=== PATIENT | female | born 1985 | race Caucasian/White ===

== ENCOUNTER 2017-08-23 00:34 | Inpatient (IN) | payer SELFPAY ==
[2017-08-23 02:18] LABS: HEMATOCRIT 40.4 % (36.0-47.0); HEMOGLOBIN 14.1 g/dl (12.0-15.5); MEAN CORPUSCULAR HEMOGLOBIN 32.3 pg (27.0-33.0); MEAN CORPUSCULAR HGB CONC 34.9 g/dl (32.0-36.5); MEAN CORPUSCULAR VOLUME 92.7 fl (80.0-96.0); PLATELET COUNT, AUTOMATED 310 10^3/uL (150-450); RED BLOOD COUNT 4.36 10^6/uL (4.00-5.40); RED CELL DISTRIBUTION WIDTH 12.6 % (11.5-14.5); WHITE BLOOD COUNT 6.6 10^3/uL (4.0-10.0)
[2017-08-23 02:31] LABS: CONTROL LINE HCG INT CTR LINE PRESENT; HCG, SERUM QUALITATIVE NEGATIVE (NEGATIVE)
[2017-08-23 02:38] LABS: AMPHETAMINES LEVEL URINE NEGATIVE (NEGATIVE); BARBITURATES URINE NEGATIVE (NEGATIVE); BENZODIAZEPINES URINE NEGATIVE (NEGATIVE); CANNABINOIDS URINE POSITIVE (NEGATIVE); COCAINE METABOLITE URINE NEGATIVE (NEGATIVE); METHADONE URINE NEGATIVE (NEGATIVE); OPIATES URINE NEGATIVE (NEGATIVE); PHENCYCLIDINE URINE NEGATIVE (NEGATIVE)
[2017-08-23 02:47] LABS: ALBUMIN/GLOBULIN RATIO 0.98 (1.00-1.93); ALKALINE PHOSPHATASE 62 U/L (45-117); ALT/SGPT 19 U/L (12-78); ANION GAP 8 MEQ/L (8-16); AST/SGOT 21 U/L (7-37); BILIRUBIN,DIRECT 0.2 MG/DL (0.0-0.2); BILIRUBIN,TOTAL 0.4 MG/DL (0.2-1.0); BLOOD UREA NITROGEN 10 MG/DL (7-18); CALCIUM LEVEL 8.9 MG/DL (8.5-10.1); CARBON DIOXIDE LEVEL 25 MEQ/L (21-32); CHLORIDE LEVEL 110 MEQ/L (98-107); CREATININE FOR GFR 0.86 MG/DL (0.55-1.30); ETHYL ALCOHOL (ETHANOL) 0.231 % (0.000-0.010); GLOMERULAR FILTRATION RATE > 60.0 (>60); GLUCOSE, FASTING 102 MG/DL (70-100); POTASSIUM SERUM 4.1 MEQ/L (3.5-5.1); SALICYLATE LEVEL < 1.7 MG/DL (5.0-30.0); SODIUM LEVEL 143 MEQ/L (136-145); TOTAL PROTEIN 8.1 GM/DL (6.4-8.2)
[2017-08-23 02:52] LABS: ACETAMINOPHEN LEVEL < 2.0 UG/ML (10.0-30.0)
[2017-08-23] MEDS ORDERED: ACETAMINOPHEN TAB 650MG DOSE (2X325MG) PO (09:30)
[2017-08-23] MEDS: NICOTINE 21MG/24HR 1 EA TRANSDERMAL TD (09:30)
[2017-08-23] MEDS ORDERED: MOM 30ML SUSPENSION UDC PO (09:30)
[2017-08-23] MEDS ORDERED: MAALOX 30 ML SUSP *UDC PO (09:30)
[2017-08-23] MEDS: CHLORTHALIDONE 12.5MG PER 1/2 TABLET PO (12:13)
[2017-08-23] MEDS: LOSARTAN 50 MG TAB PO (12:13)
[2017-08-23] MEDS: NICOTINE 14 MG/24 HR TRANSDERMAL TD (16:42)
[2017-08-23] MEDS: diphenhydrAMINE 50 MG CAP PO (21:20)
[2017-08-24] MEDS: NICOTINE 14 MG/24 HR TRANSDERMAL TD (11:32)
[2017-08-24] MEDS: IBUPROFEN 800 MG TAB PO (16:55)
[2017-08-24] MEDS: traZODone 50 MG TAB PO (23:50)
[2017-08-25] MEDS: diphenhydrAMINE 50 MG CAP PO (02:23)
[2017-08-25] MEDS: IBUPROFEN 800 MG TAB PO (02:24)
== END 2017-08-25 11:30 | disposition home or self-care (01) | DRG 754 ==
LOC: M PSY 08-24 17:43 → M ED 00:34 → M ED INP 09:21 → M PSY 13:05
DX: F32.9 Major depressive disorder, single episode, unspecified (principal); F17.210 Nicotine dependence, cigarettes, uncomplicated; M51.26 Other intervertebral disc displacement, lumbar region; M65.231 Calcific tendinitis, right forearm; M65.232 Calcific tendinitis, left forearm

== ENCOUNTER 2021-10-03 08:00 | Outpatient (RCR) | payer SELFPAY | END 2021-10-27 | LOC: M OUTALCOH 08:00 | PROVIDERS: ATTEND Psychiatry & Neurology Psychiatry | DX: Z03.89 Encounter for observation for other suspected diseases and conditions ruled out (principal) ==

== ENCOUNTER → 2021-10-03 | Outpatient (CLI) | payer SELFPAY ==
[~2021-10-03] MED LIST: DICL0.1S7 OP; MELOPOW PO; NAPR500T OR; OMEP20TA7 OR; Polyethylene Glycol OU; ULTRTA OR
== END ==
LOC: M OUTALCOH 07:37
PROVIDERS: ATTEND Psychiatry & Neurology Psychiatry
DX: Z13.30 Encounter for screening examination for mental health and behavioral disorders, unspecified (principal)

== ENCOUNTER → 2021-10-21 | Outpatient (CLI) | payer SELFPAY | LOC: M OUTALCOH 08:54 | PROVIDERS: ATTEND Psychiatry & Neurology Psychiatry | DX: Z02.89 Encounter for other administrative examinations (principal) ==

== ENCOUNTER 2021-10-25 10:41 | Outpatient (RCR) | payer SELFPAY | END 2021-10-27 | LOC: M OUTALCOH 10:41 | PROVIDERS: ATTEND Psychiatry & Neurology Psychiatry | DX: Z03.89 Encounter for observation for other suspected diseases and conditions ruled out (principal) ==